=== PATIENT | male | born 1980 | race Caucasian/White ===

== ENCOUNTER 2017-05-06 05:31 | Inpatient (IN) | payer BC, OTHER ==
[2017-05-06] MEDS ORDERED: Sodium Chloride 0.9% 10 ML Syringe FLUSH PRN (05:32)
[2017-05-06] MEDS ORDERED: Sodium Chloride 0.9% 2.5 ML Syringe FLUSH PRN (05:32)
[2017-05-06] MEDS ORDERED: Ondansetron 4 MG/2 ML SDV IVPUSH ONE (05:42)
[2017-05-06] MEDS ORDERED: Aspirin 81 MG Tab.Chew PO ONE ×2 (05:42→05:54)
[2017-05-06] MEDS ORDERED: HYDROmorphone 2 MG/ML Syringe IVPUSH ONE ×2 (05:42→06:32)
--- NOTE | 2017-05-06 05:48 | EDM.PDOC ---
<Ary Alston - Last Filed: 05/06/17 06:54> ED HPI GENERAL MEDICAL PROBLEM - General Chief Complaint: Chest Pain Stated Complaint: CHEST PAINS Time Seen by Provider: 05/06/17 05:40 - History of Present Illness INITIAL COMMENTS - FREE TEXT/NARRATIVE: HISTORY AND PHYSICAL: History of present illness: The patient is a 36-year-old male with no pre-existing medical problems and specifically no cardiac or pulmonary disease who presents with complaints of left-sided chest pain and left abdominal pain that started soon after he woke up at 3 PM yesterday (14hrs ago). 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 The pain gradually evolved and has been constant throughout yesterday afternoon and tonight and has been worse over the last several hours. He says is difficult to take deep breath because of the pain he has had no cough or upper respiratory symptoms no fevers and no recent trauma to the area. He's had no nausea or vomiting and says the pain sits at the left side and does not radiate to his jaw back or arm. He took 2 baby aspirin earlier but no other medications for the pain. He has no history of exercise intolerance and said he did a stress test many years ago was negative. He doesn't smoke or do any illicit drugs and he does not know his cholesterol lipid panel. He says he does drink alcohol occasionally. He has no significant family history. He has no leg pain or swelling and says that with his job he does a lot of sitting but he does get up and around. Patient denies any urinary symptoms and no flank pain. He is very vague about describing as plane only saying that it is very sharp and localized to the left side and worse with movements and deep breath. Review of systems: As per history of present illness and below otherwise all systems reviewed and negative. Past medical history: As per history of present illness and as reviewed below otherwise noncontributory. Surgical history: As per history of present illness and as reviewed below otherwise noncontributory. Social history: No reported history of drug or alcohol abuse. Family history: As per history of present illness and as reviewed below otherwise noncontributory. Physical exam: Gen.: Well-developed well-nourished man who is nontoxic and looks uncomfortable in the room. Vital signs have been noted by me HEENT: Atraumatic, normocephalic, negative for conjunctival pallor or scleral icterus, mucous membranes moist, throat clear, neck supple, nontender, trachea midline. Lungs: Clear to auscultation but very diminished in the bases left greater than right, there is no external evidence of any trauma or soft tissue injuries and there is no crepitus,, there is no wheezing or stridor and is clearly discomfort when the patient takes a deep breath, chest there is tenderness to palpation to the left of the sternum in the lower chest wall area extending towards the left breast without defects deformities or crepitus. The patient splints with any deep breaths and holds his left side. Heart: S1S2, regular, negative for clicks, rubs, or JVD. Abdomen: Soft, nondistended, the patient is very tense which makes abdominal exam challenging but he does have left upper quadrant tenderness with voluntary guarding but no rebound. Bowel sounds are hypoactive but there is no tympany. Negative for masses or hepatosplenomegaly. Negative for costovertebral tenderness. Pelvis: Stable nontender. Genitourinary: Deferred. Rectal: Deferred. Extremities: Atraumatic, negative for cords or calf pain. Neurovascular unremarkable. No pedal edema or leg asymmetry Neuro: Awake, alert, oriented. Cranial nerves II through XII unremarkable. Cerebellum unremarkable. Motor and sensory unremarkable throughout. Exam nonfocal. Diagnostics: EKG one view chest x-ray CBC CMP INR troponin amylase and lipase Therapeutics: IV O2 monitor IV fluids Zofran Dilaudid 2 baby aspirin, patient took 2 baby aspirin earlier 0630: Patient is aware of EKG and chest x-ray and that we are currently waiting the rest of his lab tests and that he can go to CAT scan. After the Dilaudid he does feel better but he still having the discomfort but he has no vital sign abnormalities appreciated both on triage currently. We will give another dose of Dilaudid as he is still having persistent pain 0640: Pt leaving for CT; will repeat an EKG when he returns 0700: Case endorsed to Dr. Rodríguez; he will follow-up EKG#[address] scan results and disposition the patient per those findings. Impression: Left chest/left abdominal pain Definitive disposition and diagnosis as appropriate pending reevaluation and review of above. chest area Pain Score (Numeric/FACES): 10 - Related Data Allergies Allergy/AdvReac Type Severity Reaction Status Date / Time Penicillins Allergy Other Verified 05/06/17 05:43 Home Meds: Home Meds . [No Known Home Meds] 05/06/17 [History] ED ROS GENERAL - Review of Systems Review Of Systems: ROS reveals no pertinent complaints other than HPI. ED EXAM, GENERAL - Physical Exam Exam: See Below (See dictation) Course - Vital Signs Last Recorded V/S: Last Vital Signs Temp 36.1 C 05/06/17 05:39 Pulse 73 05/06/17 07:16 Resp 18 05/06/17 07:16 BP 128/78 05/06/17 07:16 Pulse Ox 97 05/06/17 07:16 - Orders/Labs/Meds Orders: Active Orders 24 hr Category Date Time Status Cardiac Monitoring [RC] . DIRECTED Care 05/06/17 05:32 Active EKG Documentation Completion [RC] STAT Care 05/06/17 05:32 Active EKG Documentation Completion [RC] STAT Care 05/06/17 06:54 Active Oxygen Therapy, ED [RC] ASDIRECTED Care 05/06/17 05:32 Active Pulse Oximetry [RC] ASDIRECTED Care 05/06/17 05:32 Active Abdomen Pelvis w Cont [CT] Stat Exams 05/06/17 05:54 Taken Ang Chest [CT] Stat Exams 05/06/17 05:54 Taken Chest 1V Frontal [CR] Stat Exams 05/06/17 05:41 Taken Azithromycin [Zithromax] 1,000 mg Med 05/06/17 08:08 Ordered Sodium Chloride 0.9% [Normal Saline] 500 ml IV ONETIME Sodium Chloride 0.9% [Normal Saline] 1,000 ml Med 05/06/17 05:45 Active IV ASDIRECTED Sodium Chloride 0.9% [Normal Saline] 1,000 ml Med 05/06/17 08:15 Ordered IV STAT Sodium Chloride 0.9% [Saline Flush] Med 05/06/17 05:32 Active 10 ml FLUSH ASDIRECTED PRN Sodium Chloride 0.9% [Saline Flush] Med 05/06/17 05:32 Active 2.5 ml FLUSH ASDIRECTED PRN cefTRIAXone [Rocephin in Dextrose,Iso-Osm 1 GM/50 ML] 1 Med 05/06/17 08:07 Ordered gm Premix Bag 1 bag IV ONETIME Saline Lock Insert [OM.PC] Stat Oth 05/06/17 05:32 Ordered Medication Orders Sodium Chloride (Normal Saline) 1,000 mls @ 125 mls/hr IV ASDIRECTED RON Last Infusion: 05/06/17 06:32 Dose: 125 mls/hr Infusion: 05/06/17 06:05 Dose: 999 mls/hr Admin: 05/06/17 05:59 Dose: 125 mls/hr Sodium Chloride (Saline Flush) 10 ml FLUSH ASDIRECTED PRN PRN Reason: Keep Vein Open Last Admin: 05/06/17 05:59 Dose: 10 ml Sodium Chloride (Saline Flush) 2.5 ml FLUSH ASDIRECTED PRN PRN Reason: Keep Vein Open Last Admin: 05/06/17 05:59 Dose: 2.5 ml Labs: Laboratory Tests 05/06/17 05/06/17 05/06/17 Range/Units 05:45 05:45 05:45 WBC 14.29 H (4.0-11.0) K/uL RBC 5.13 (4.50-5.90) M/uL Hgb 15.8 (13.0-17.0) g/dL Hct 44.5 (38.0-50.0) % MCV 86.7 (80.0-98.0) fL MCH 30.8 (27.0-32.0) pg MCHC 35.5 (31.0-37.0) g/dL RDW Std Deviation 40.1 (28.0-62.0) fl RDW Coeff of Emily 13 (11.0-15.0) % Plt Count 327 (150-400) K/uL MPV 10.00 (7.40-12.00) fL Neut % (Auto) 70.2 (48.0-80.0) % Lymph % (Auto) 21.0 (16.0-40.0) % [place] % (Auto) 7.6 (0.0-15.0) % Eos % (Auto) 1.0 (0.0-7.0) % Baso % (Auto) 0.2 (0.0-1.5) % Neut # (Auto) 10.0 H (1.4-5.7) K/uL Lymph # (Auto) 3.0 H (0.6-2.4) K/uL [place] # (Auto) 1.1 H (0.0-0.8) K/uL Eos # (Auto) 0.2 (0.0-0.7) K/uL Baso # (Auto) 0.0 (0.0-0.1) K/uL Nucleated RBC % 0.0 /100WBC Nucleated RBCs # 0 K/uL INR 0.96 (0.86-1.11) Sodium 139 (136-146) mmol/L Potassium 4.3 (3.5-5.1) mmol/L Chloride 105 (98-110) mmol/L Carbon Dioxide 24 (21-31) mmol/L BUN 17 (6.0-23.0) mg/dL Creatinine 1.0 (0.6-1.5) mg/dL Est Cr Clr Drug Dosing 93.93 mL/min Estimated GFR (MDRD) > 60.0 ml/min Glucose 101 (60-110) mg/dL Calcium 10.0 (8.8-10.8) mg/dL Total Bilirubin 0.8 (0.1-1.5) mg/dL AST 18 (5-40) IU/L ALT 20 (8-54) IU/L Alkaline Phosphatase 69 (40-150) Troponin I < 0.10 (0.0-0.29) NG/ML Total Protein 8.0 (6.0-8.0) g/dL Albumin 4.4 (3.5-5.0) g/dL Globulin 3.6 H (2.0-3.5) g/dL Albumin/Globulin Ratio 1.2 L (1.3-2.8) Amylase 81 (10-90) U/L Lipase 49 (7-80) U/L Meds: Medications Generic Name Dose Route Start Last Admin Trade Name Freq PRN Reason Stop Dose Admin Sodium Chloride 1,000 mls @ 125 mls/hr 05/06/17 05:45 05/06/17 06:32 Normal Saline IV 125 mls/hr ASDIRECTED RON Infusion Sodium Chloride 10 ml 05/06/17 05:32 05/06/17 05:59 Saline Flush FLUSH 10 ml ASDIRECTED PRN Administration Keep Vein Open Sodium Chloride 2.5 ml 05/06/17 05:32 05/06/17 05:59 Saline Flush FLUSH 2.5 ml ASDIRECTED PRN Administration Keep Vein Open Discontinued Medications Generic Name Dose Route Start Last Admin Trade Name Freq PRN Reason Stop Dose Admin Aspirin 324 mg 05/06/17 05:42 05/06/17 05:59 Aspirin PO 05/06/17 05:43 Not Given ONETIME ONE Aspirin 162 mg 05/06/17 09:00 Aspirin PO DAILY RON Aspirin 162 mg 05/06/17 06:00 Aspirin PO DAILY RON Aspirin 162 mg 05/06/17 05:54 05/06/17 05:57 Aspirin PO 05/06/17 05:55 162 mg ONETIME ONE Administration Hydromorphone HCl 1 mg 05/06/17 05:42 05/06/17 05:57 Dilaudid IVPUSH 05/06/17 05:43 1 mg ONETIME ONE Administration Hydromorphone HCl 1 mg 05/06/17 06:32 05/06/17 06:36 Dilaudid IVPUSH 05/06/17 06:33 1 mg ONETIME ONE Administration Iopamidol 100 ml 05/06/17 07:19 05/06/17 07:20 Isovue Multipack-370 (76%) IVPUSH 05/06/17 07:20 100 ml ONETIME STA Administration Ondansetron HCl 4 mg 05/06/17 05:42 05/06/17 05:57 Zofran IVPUSH 05/06/17 05:43 4 mg ONETIME ONE Administration Departure - Departure Disposition: Admitted As Inpatient 68 Condition: Good Clinical Impression: Consolidation lung Chest pain Qualifiers: Chest pain type: unspecified Qualified Code(s): R07.9 - Chest pain, unspecified Abdominal pain Qualifiers: Abdominal location: left upper quadrant Qualified Code(s): R10.12 - Left upper quadrant pain - Discharge Information Forms: ED Department Discharge - My Orders Last 24 Hours: My Active Orders 05/06/17 08:07 cefTRIAXone [Rocephin in Dextrose,Iso-Osm 1 GM/50 ML] 1 gm Premix Bag 1 bag IV ONETIME 05/06/17 08:08 Azithromycin [Zithromax] 1,000 mg Sodium Chloride 0.9% [Normal Saline] 500 ml IV ONETIME 05/06/17 08:15 Sodium Chloride 0.9% [Normal Saline] 1,000 ml IV STAT - Assessment/Plan Last 24 Hours: My Active Orders 05/06/17 08:07 cefTRIAXone [Rocephin in Dextrose,Iso-Osm 1 GM/50 ML] 1 gm Premix Bag 1 bag IV ONETIME 05/06/17 08:08 Azithromycin [Zithromax] 1,000 mg Sodium Chloride 0.9% [Normal Saline] 500 ml IV ONETIME 05/06/17 08:15 Sodium Chloride 0.9% [Normal Saline] 1,000 ml IV STAT <Duncan Rodríguez - Last Filed: 05/06/17 08:10> ED HPI GENERAL MEDICAL PROBLEM - History of Present Illness INITIAL COMMENTS - FREE TEXT/NARRATIVE: I've seen in examined the patient agree with above His endorsed to me at follow-up imaging CTA and abdomen pelvis with contrast Pain is still present 4 out of 10 but tolerable Findings on CT are as follows Assessment Lower lobe consolidation with small effusion Small hiatal hernia Pain Plan Discussed with Dr. Walker admitting physician will admitted inpatient start on Rocephin and azithromycin and pain control Departure - Departure Time of Disposition: 08:10 Condition: Fair
[2017-05-06] MEDS: Sodium Chloride 0.9% 1,000 ML IV SCH (05:59)
[2017-05-06] MEDS ORDERED: Aspirin 81 MG Tab.Chew PO SCH ×2 (06:00→09:00)
[2017-05-06 06:33] LABS: CHLORIDE,CL 105 mmol/L (98-110); SODIUM,NA 139 mmol/L (136-146)
[2017-05-06] MEDS ORDERED: Iopamidol 755 MG/ML 500 ML Multipack Bottle IVPUSH STA (07:19)
[2017-05-06] MEDS ORDERED: cefTRIAXone 1 GM in Premix Bag 1 BAG IV ONE (08:07)
[2017-05-06] MEDS ORDERED: Azithromycin 1,000 MG in Sodium Chloride 0.9% 500 ML IV ONE (08:08)
[2017-05-06] MEDS ORDERED: Sodium Chloride 0.9% 1,000 ML IV SCH (08:15)
[2017-05-06] MEDS ORDERED: Acetaminophen 325 MG Tab PO PRN (10:01)
[2017-05-06] MEDS ORDERED: Morphine 2 MG/ML Syringe IVPUSH PRN (10:01)
[2017-05-06] MEDS ORDERED: Ibuprofen 400 MG Tab PO PRN (10:01)
--- NOTE | 2017-05-06 10:08 | PCM.HP ---
H&P History of Present Illness - History of Present Illness Initial Comments - Free Text/Narative: 36 yo male who presents with two day history of pleuritic chest pain and fever and chills. He denies any shortness of breath, or cough. In the ED patient's EKG did not show any signs of ischemia. CT PE scan was negative for PE, it did report mild basilar consolidation. chest area Pain Score (Numeric/FACES): 6 - Related Data Allergies/Adverse Reactions: Allergies Allergy/AdvReac Type Severity Reaction Status Date / Time Penicillins Allergy Other Verified 05/06/17 05:43 Home Medications: Home Meds . [No Known Home Meds] 05/06/17 [History] Past Medical History - Past Health History Medical/Surgical History: Denies Medical/Surgical History HEENT History: Reports: None Cardiovascular History: Reports: None Respiratory History: Reports: None Gastrointestinal History: Reports: None Genitourinary History: Reports: None Musculoskeletal History: Reports: None Neurological History: Reports: None Psychiatric History: Reports: None Endocrine/Metabolic History: Reports: None Hematologic History: Reports: None Immunologic History: Reports: None Oncologic (Cancer) History: Reports: None Dermatologic History: Reports: None - Infectious Disease History Infectious Disease History: Reports: Chicken Pox - Past Surgical History Head Surgeries/Procedures: Reports: None HEENT Surgical History: Reports: None Social & Family History - Family History Family Medical History: Noncontributory - Tobacco Use Smoking Status *Q: Never Smoker Second Hand Smoke Exposure: No - Caffeine Use Caffeine Use: Reports: Coffee, Energy Drinks, Soda, Tea - Recreational Drug Use Recreational Drug Use: No H&P Review of Systems - Review of Systems: Review Of Systems: ROS reveals no pertinent complaints other than HPI. Exam - Exam Exam: See Below - Vital Signs Vital Signs: Last Vital Signs Temp 35.6 C 05/06/17 08:45 Pulse 69 05/06/17 08:45 Resp 20 05/06/17 08:45 BP 124/81 05/06/17 08:45 Pulse Ox 98 05/06/17 09:20 Weight: 75.8 kg - Exam General: Alert Lungs: Clear to Auscultation, Normal Respiratory Effort. No: Decreased Breath Sounds, Crackles, Rhonchi, Wheezing Cardiovascular: Regular Rate, Regular Rhythm GI/Abdominal Exam: Soft, Non-Tender, No Distention Extremities: Non-Tender, No Pedal Edema Skin: Warm, Intact - Patient Data Result Diagrams: 05/07/17 05:44 05/07/17 05:44 *Q Meaningful Use (ADM) - VTE *Q VTE Criteria *Q: - Stroke *Q Stroke Criteria *Q: - AMI *Q AMI Criteria *Q: Problem List Initiated/Reviewed/Updated: Yes Orders Last 24hrs: Active Orders 24 hr Category Date Time Status Antiembolic Devices [RC] PER UNIT ROUTINE Care 05/06/17 10:04 Ordered Oxygen Therapy [RC] PRN Care 05/06/17 10:02 Ordered Up With Assistance [RC] ASDIRECTED Care 05/06/17 10:01 Ordered VTE/DVT Education [RC] PER UNIT ROUTINE Care 05/06/17 10:02 Ordered Vital Signs [RC] Q4H Care 05/06/17 10:02 Ordered Regular Diet [DIET] Diet 05/06/17 Breakfast Ordered BASIC METABOLIC PANEL,BMP [CHEM] AM Lab 05/07/17 05:11 Ordered BASIC METABOLIC PANEL,BMP [CHEM] AM Lab 05/08/17 05:11 Ordered BASIC METABOLIC PANEL,BMP [CHEM] AM Lab 05/09/17 05:11 Ordered CBC WITH AUTO DIFF [HEME] AM Lab 05/07/17 05:11 Ordered CBC WITH AUTO DIFF [HEME] AM Lab 05/08/17 05:11 Ordered CBC WITH AUTO DIFF [HEME] AM Lab 05/09/17 05:11 Ordered TROPONIN I [CHEM] Q6H Lab 05/06/17 12:00 Ordered TROPONIN I [CHEM] Q6H Lab 05/06/17 18:00 Ordered Acetaminophen [Tylenol] Med 05/06/17 10:01 Ordered 650 mg PO Q4H PRN Azithromycin [Zithromax] 500 mg Med 05/07/17 10:00 Active Sodium Chloride 0.9% [Normal Saline] 250 ml IV Q24H Enoxaparin [Lovenox] Med 05/07/17 09:00 Ordered 40 mg SUBCUT DAILY Ibuprofen [Motrin] Med 05/06/17 10:01 Ordered 400 mg PO Q6H PRN Morphine Med 05/06/17 10:01 Ordered 2 mg IVPUSH Q4H PRN Ondansetron [Zofran] Med 05/06/17 10:01 Ordered 4 mg IVPUSH Q4H PRN cefTRIAXone [Rocephin in Dextrose,Iso-Osm 1 GM/50 ML] 1 Med 05/07/17 10:00 Active gm Premix Bag 1 bag IV Q24H oxyCODONE Med 05/06/17 10:01 Ordered 5 mg PO Q4H PRN Sequential Compression Device [OM.PC] Per Unit Routine Oth 05/06/17 10:02 Ordered Resuscitation Status Routine Resus Stat 05/06/17 10:01 Ordered Medication Orders Sodium Chloride (Normal Saline) 1,000 mls @ 125 mls/hr IV ASDIRECTED RON Last Infusion: 05/06/17 06:32 Dose: 125 mls/hr Infusion: 05/06/17 06:05 Dose: 999 mls/hr Admin: 05/06/17 05:59 Dose: 125 mls/hr Azithromycin 1,000 mg/ Sodium (Chloride) 500 mls @ 250 mls/hr IV ONETIME ONE Stop: 05/06/17 10:07 Sodium Chloride (Normal Saline) 1,000 mls @ 125 mls/hr IV STAT RON Azithromycin 500 mg/ Sodium (Chloride) 250 mls @ 250 mls/hr IV Q24H ORN Ceftriaxone Sodium/Dextrose 1 (gm/ Premix) 50 mls @ 100 mls/hr IV Q24H RON Sodium Chloride (Saline Flush) 10 ml FLUSH ASDIRECTED PRN PRN Reason: Keep Vein Open Last Admin: 05/06/17 05:59 Dose: 10 ml Sodium Chloride (Saline Flush) 2.5 ml FLUSH ASDIRECTED PRN PRN Reason: Keep Vein Open Last Admin: 05/06/17 05:59 Dose: 2.5 ml Assessment/Plan Comment:: 36 yo male admitted for community acquired pneumonia. We will treat with Rocephin and azithromycin.
[2017-05-06] MEDS: oxyCODONE 5 MG Tab PO PRN ×3 (10:25→23:01)
[2017-05-06] MEDS: Ondansetron 4 MG/2 ML SDV IVPUSH PRN (10:27)
[2017-05-06] MEDS: Azithromycin 500 MG in Sodium Chloride 0.9% 250 ML IV SCH (11:07)
[2017-05-07] MEDS: Sodium Chloride 0.9% 1,000 ML IV SCH (03:17)
[2017-05-07] MEDS: oxyCODONE 5 MG Tab PO PRN (05:50)
[2017-05-07] MEDS ORDERED: Calcium Carbonate 500 MG Tab.Chew PO PRN (06:19)
[2017-05-07 06:26] LABS: CHLORIDE,CL 109 mmol/L (98-110); SODIUM,NA 140 mmol/L (136-146)
[2017-05-07] MEDS ORDERED: Enoxaparin 40 MG/0.4 ML Syringe SUBCUT SCH (09:00)
--- NOTE | 2017-05-07 09:46 | PCM.PN ---
- Review of Systems Systems Review Comment:: chest pain has improved, no fevers or cough. - Patient Data Vitals - Most Recent: Last Vital Signs Temp 35.9 C 05/07/17 08:00 Pulse 86 05/07/17 08:00 Resp 22 H 05/07/17 08:00 BP 124/70 05/07/17 08:00 Pulse Ox 92 L 05/07/17 08:00 Weight - Most Recent: 75.8 kg I&O - Last 24 Hours: Intake & Output 05/06/17 05/07/17 05/07/17 22:59 06:59 14:59 Intake Total 200 3404 Output Total 770 300 Balance -570 3104 Lab Results Last 24 Hours: Laboratory Results - last 24 hr 05/06/17 05/06/17 05/07/17 Range/Units 12:09 18:05 05:44 WBC 11.00 (4.0-11.0) K/uL RBC 4.57 (4.50-5.90) M/uL Hgb 14.0 (13.0-17.0) g/dL Hct 40.6 (38.0-50.0) % MCV 88.8 (80.0-98.0) fL MCH 30.6 (27.0-32.0) pg MCHC 34.5 (31.0-37.0) g/dL RDW Std Deviation 40.9 (28.0-62.0) fl RDW Coeff of Emily 13 (11.0-15.0) % Plt Count 276 (150-400) K/uL MPV 9.80 (7.40-12.00) fL Neut % (Auto) 75.8 (48.0-80.0) % Lymph % (Auto) 16.3 (16.0-40.0) % [place] % (Auto) 7.2 (0.0-15.0) % Eos % (Auto) 0.5 (0.0-7.0) % Baso % (Auto) 0.2 (0.0-1.5) % Neut # (Auto) 8.3 H (1.4-5.7) K/uL Lymph # (Auto) 1.8 (0.6-2.4) K/uL [place] # (Auto) 0.8 (0.0-0.8) K/uL Eos # (Auto) 0.1 (0.0-0.7) K/uL Baso # (Auto) 0.0 (0.0-0.1) K/uL Nucleated RBC % 0.0 /100WBC Nucleated RBCs # 0 K/uL Sodium (136-146) mmol/L Potassium (3.5-5.1) mmol/L Chloride (98-110) mmol/L Carbon Dioxide (21-31) mmol/L BUN (6.0-23.0) mg/dL Creatinine (0.6-1.5) mg/dL Est Cr Clr Drug Dosing mL/min Estimated GFR (MDRD) ml/min Glucose (60-110) mg/dL Calcium (8.8-10.8) mg/dL Troponin I < 0.10 < 0.10 (0.0-0.29) NG/ML 05/07/17 Range/Units 05:44 WBC (4.0-11.0) K/uL RBC (4.50-5.90) M/uL Hgb (13.0-17.0) g/dL Hct (38.0-50.0) % MCV (80.0-98.0) fL MCH (27.0-32.0) pg MCHC (31.0-37.0) g/dL RDW Std Deviation (28.0-62.0) fl RDW Coeff of Emily (11.0-15.0) % Plt Count (150-400) K/uL MPV (7.40-12.00) fL Neut % (Auto) (48.0-80.0) % Lymph % (Auto) (16.0-40.0) % [place] % (Auto) (0.0-15.0) % Eos % (Auto) (0.0-7.0) % Baso % (Auto) (0.0-1.5) % Neut # (Auto) (1.4-5.7) K/uL Lymph # (Auto) (0.6-2.4) K/uL [place] # (Auto) (0.0-0.8) K/uL Eos # (Auto) (0.0-0.7) K/uL Baso # (Auto) (0.0-0.1) K/uL Nucleated RBC % /100WBC Nucleated RBCs # K/uL Sodium 140 (136-146) mmol/L Potassium 4.2 (3.5-5.1) mmol/L Chloride 109 (98-110) mmol/L Carbon Dioxide 25 (21-31) mmol/L BUN 10 (6.0-23.0) mg/dL Creatinine 0.8 (0.6-1.5) mg/dL Est Cr Clr Drug Dosing 121.64 mL/min Estimated GFR (MDRD) > 60.0 ml/min Glucose 110 (60-110) mg/dL Calcium 8.8 (8.8-10.8) mg/dL Troponin I (0.0-0.29) NG/ML Med Orders - Current: Current Medications Acetaminophen (Tylenol) 650 mg PO Q4H PRN PRN Reason: Pain (Mild 1-3)/fever Calcium Carbonate/Glycine (Tums) 500 mg PO TID PRN PRN Reason: Heartburn Enoxaparin Sodium (Lovenox) 40 mg SUBCUT DAILY [facility] [place] Last Admin: 05/07/17 09:33 Dose: 40 mg Sodium Chloride (Normal Saline) 1,000 mls @ 125 mls/hr IV ASDIRECTED [facility] [place] Last Admin: 05/07/17 03:17 Dose: 125 mls/hr Ceftriaxone Sodium/Dextrose 1 (gm/ Premix) 50 mls @ 100 mls/hr IV Q24H [facility] [place] Last Admin: 05/07/17 09:34 Dose: 100 mls/hr Azithromycin 500 mg/ Sodium (Chloride) 250 mls @ 250 mls/hr IV Q24H [facility] [place] Last Admin: 05/06/17 11:07 Dose: 250 mls/hr Ibuprofen (Motrin) 400 mg PO Q6H PRN PRN Reason: Pain (mild 1-3) Ondansetron HCl (Zofran) 4 mg IVPUSH Q4H PRN PRN Reason: Nausea Last Admin: 05/06/17 10:27 Dose: 4 mg Sodium Chloride (Saline Flush) 10 ml FLUSH ASDIRECTED PRN PRN Reason: Keep Vein Open Last Admin: 05/06/17 05:59 Dose: 10 ml Sodium Chloride (Saline Flush) 2.5 ml FLUSH ASDIRECTED PRN PRN Reason: Keep Vein Open Last Admin: 05/06/17 05:59 Dose: 2.5 ml Discontinued Medications Aspirin (Aspirin) 324 mg PO ONETIME ONE Stop: 05/06/17 05:43 Last Admin: 05/06/17 05:59 Dose: Not Given Aspirin (Aspirin) 162 mg PO DAILY [facility] [place] Aspirin (Aspirin) 162 mg PO DAILY [facility] [place] Aspirin (Aspirin) 162 mg PO ONETIME ONE Stop: 05/06/17 05:55 Last Admin: 05/06/17 05:57 Dose: 162 mg Hydromorphone HCl (Dilaudid) 1 mg IVPUSH ONETIME ONE Stop: 05/06/17 05:43 Last Admin: 05/06/17 05:57 Dose: 1 mg Hydromorphone HCl (Dilaudid) 1 mg IVPUSH ONETIME ONE Stop: 05/06/17 06:33 Last Admin: 05/06/17 06:36 Dose: 1 mg Azithromycin 1,000 mg/ Sodium (Chloride) 500 mls @ 250 mls/hr IV ONETIME ONE Stop: 05/06/17 10:07 Last Admin: 05/06/17 10:11 Dose: Not Given Ceftriaxone Sodium/Dextrose 1 (gm/ Premix) 50 mls @ 100 mls/hr IV ONETIME ONE Stop: 05/06/17 08:36 Last Admin: 05/06/17 08:23 Dose: 100 mls/hr Sodium Chloride (Normal Saline) 1,000 mls @ 125 mls/hr IV STAT RNO Last Admin: 05/06/17 10:33 Dose: 125 mls/hr Azithromycin 500 mg/ Sodium (Chloride) 250 mls @ 250 mls/hr IV Q24H [facility] [place] Iopamidol (Isovue Multipack-370 (76%)) 100 ml IVPUSH ONETIME STA Stop: 05/06/17 07:20 Last Admin: 05/06/17 07:20 Dose: 100 ml Morphine Sulfate (Morphine) 2 mg IVPUSH Q4H PRN PRN Reason: Pain (severe 7-10) Stop: 05/07/17 10:03 Ondansetron HCl (Zofran) 4 mg IVPUSH ONETIME ONE Stop: 05/06/17 05:43 Last Admin: 05/06/17 05:57 Dose: 4 mg Oxycodone HCl (Oxycodone) 5 mg PO Q4H PRN PRN Reason: Pain (moderate 4-6) Last Admin: 05/07/17 05:50 Dose: 5 mg - Exam General: Alert, Oriented Lungs: Clear to Auscultation, Normal Respiratory Effort. No: Rhonchi, Wheezing Cardiovascular: Regular Rate, Regular Rhythm GI/Abdominal Exam: Soft, Non-Tender Extremities: Normal Inspection Skin: Warm, Dry, Intact Neurological: No New Focal Deficit - Problem List Review Problem List Initiated/Reviewed/Updated: Yes - My Orders Last 24 Hours: My Active Orders 05/06/17 10:01 Up With Assistance [RC] ASDIRECTED Acetaminophen [Tylenol] 650 mg PO Q4H PRN Ibuprofen [Motrin] 400 mg PO Q6H PRN Ondansetron [Zofran] 4 mg IVPUSH Q4H PRN oxyCODONE 5 mg PO Q4H PRN Resuscitation Status Routine 05/06/17 10:02 VTE/DVT Education [RC] PER UNIT ROUTINE Vital Signs [RC] Q4H Sequential Compression Device [OM.PC] Per Unit Routine 05/06/17 10:04 Antiembolic Devices [RC] PER UNIT ROUTINE 05/06/17 10:08 CULTURE SPUTUM + SMEAR [RM] Routine 05/06/17 11:00 Azithromycin [Zithromax] 500 mg Sodium Chloride 0.9% [Normal Saline] 250 ml IV Q24H 05/07/17 06:19 Calcium Carbonate [Tums] 500 mg PO TID PRN 05/07/17 09:00 Enoxaparin [Lovenox] 40 mg SUBCUT DAILY 05/07/17 10:00 cefTRIAXone [Rocephin in Dextrose,Iso-Osm 1 GM/50 ML] 1 gm Premix Bag 1 bag IV Q24H 05/08/17 05:11 BASIC METABOLIC PANEL,BMP [CHEM] AM CBC WITH AUTO DIFF [HEME] AM 05/09/17 05:11 BASIC METABOLIC PANEL,BMP [CHEM] AM CBC WITH AUTO DIFF [HEME] AM - Plan Plan:: 36 yo male admitted for community acquired pneumonia. We will continue Rocephin and azithromycin. Anticipate discharge home tomorrow.
[2017-05-07] MEDS ORDERED: cefTRIAXone 1 GM in Premix Bag 1 BAG IV SCH (10:00)
[2017-05-07] MEDS ORDERED: Azithromycin 500 MG in Sodium Chloride 0.9% 250 ML IV SCH (10:00)
[2017-05-07] MEDS: Azithromycin 500 MG in Sodium Chloride 0.9% 250 ML IV SCH (10:55)
[2017-05-07] MEDS: Ondansetron 4 MG/2 ML SDV IVPUSH PRN (12:12)
--- NOTE | 2017-05-07 18:43 | PCM.DCSUM1 ---
Discharge Summary - Discharge Data Discharge Date: 05/07/17 Discharge Disposition: Home, Self-Care 01 Condition: Good - Patient Summary/Data Hospital Course: 36 yo male who was admitted last night for community acquired pneumonia. He presented with two day history of pleuritic chest pain and fever and chills. He denied any shortness of breath, or cough. In the ED patient's EKG did not show any signs of ischemia. Sereial troponins were negative. He did have a leukocytosis of 14,270. CT PE scan was negative for PE, but did report mild basilar consolidation. He was treated with Azithromycin and Rocephin. His leukocytosis resolved this morning. This evening patient is requesting discharge. He was discharged home with Azithromycin 500 mg daily for five more days. - Patient Instructions Diet: Regular Diet as Tolerated Activity: As Tolerated Notify Provider of: Fever - Discharge Plan Prescriptions/Med Rec: Azithromycin 500 mg PO DAILY #5 tablet Home Medications: Home Meds Azithromycin 500 mg PO DAILY #5 tablet 05/07/17 [Rx] Forms: ED Department Discharge - Patient Data Vitals - Most Recent: Last Vital Signs Temp 37.0 C 05/07/17 16:00 Pulse 86 05/07/17 16:00 Resp 22 H 05/07/17 16:00 BP 100/53 L 05/07/17 16:00 Pulse Ox 90 L 05/07/17 16:00 Weight - Most Recent: 75.8 kg I&O - Last 24 hours: Intake & Output 05/07/17 05/07/17 05/07/17 06:59 14:59 22:59 Intake Total 3404 987 940 Output Total 300 900 Balance 3104 987 40 Lab Results - Last 24 hrs: Laboratory Results - last 24 hr 05/07/17 05/07/17 Range/Units 05:44 05:44 WBC 11.00 (4.0-11.0) K/uL RBC 4.57 (4.50-5.90) M/uL Hgb 14.0 (13.0-17.0) g/dL Hct 40.6 (38.0-50.0) % MCV 88.8 (80.0-98.0) fL MCH 30.6 (27.0-32.0) pg MCHC 34.5 (31.0-37.0) g/dL RDW Std Deviation 40.9 (28.0-62.0) fl RDW Coeff of Emily 13 (11.0-15.0) % Plt Count 276 (150-400) K/uL MPV 9.80 (7.40-12.00) fL Neut % (Auto) 75.8 (48.0-80.0) % Lymph % (Auto) 16.3 (16.0-40.0) % [place] % (Auto) 7.2 (0.0-15.0) % Eos % (Auto) 0.5 (0.0-7.0) % Baso % (Auto) 0.2 (0.0-1.5) % Neut # (Auto) 8.3 H (1.4-5.7) K/uL Lymph # (Auto) 1.8 (0.6-2.4) K/uL [place] # (Auto) 0.8 (0.0-0.8) K/uL Eos # (Auto) 0.1 (0.0-0.7) K/uL Baso # (Auto) 0.0 (0.0-0.1) K/uL Nucleated RBC % 0.0 /100WBC Nucleated RBCs # 0 K/uL Sodium 140 (136-146) mmol/L Potassium 4.2 (3.5-5.1) mmol/L Chloride 109 (98-110) mmol/L Carbon Dioxide 25 (21-31) mmol/L BUN 10 (6.0-23.0) mg/dL Creatinine 0.8 (0.6-1.5) mg/dL Est Cr Clr Drug Dosing 121.64 mL/min Estimated GFR (MDRD) > 60.0 ml/min Glucose 110 (60-110) mg/dL Calcium 8.8 (8.8-10.8) mg/dL Med Orders - Current: Current Medications Acetaminophen (Tylenol) 650 mg PO Q4H PRN PRN Reason: Pain (Mild 1-3)/fever Calcium Carbonate/Glycine (Tums) 500 mg PO TID PRN PRN Reason: Heartburn Enoxaparin Sodium (Lovenox) 40 mg SUBCUT DAILY [facility] Last Admin: 05/07/17 09:33 Dose: 40 mg Ceftriaxone Sodium/Dextrose 1 (gm/ Premix) 50 mls @ 100 mls/hr IV Q24H [facility] Last Admin: 05/07/17 09:34 Dose: 100 mls/hr Azithromycin 500 mg/ Sodium (Chloride) 250 mls @ 250 mls/hr IV Q24H [facility] Last Admin: 05/07/17 10:55 Dose: 250 mls/hr Ibuprofen (Motrin) 400 mg PO Q6H PRN PRN Reason: Pain (mild 1-3) Ondansetron HCl (Zofran) 4 mg IVPUSH Q4H PRN PRN Reason: Nausea Last Admin: 05/07/17 12:12 Dose: 4 mg Sodium Chloride (Saline Flush) 10 ml FLUSH ASDIRECTED PRN PRN Reason: Keep Vein Open Last Admin: 05/06/17 05:59 Dose: 10 ml Sodium Chloride (Saline Flush) 2.5 ml FLUSH ASDIRECTED PRN PRN Reason: Keep Vein Open Last Admin: 05/06/17 05:59 Dose: 2.5 ml Discontinued Medications Aspirin (Aspirin) 324 mg PO ONETIME ONE Stop: 05/06/17 05:43 Last Admin: 05/06/17 05:59 Dose: Not Given Aspirin (Aspirin) 162 mg PO DAILY [facility] Aspirin (Aspirin) 162 mg PO DAILY [facility] Aspirin (Aspirin) 162 mg PO ONETIME ONE Stop: 05/06/17 05:55 Last Admin: 05/06/17 05:57 Dose: 162 mg Hydromorphone HCl (Dilaudid) 1 mg IVPUSH ONETIME ONE Stop: 05/06/17 05:43 Last Admin: 05/06/17 05:57 Dose: 1 mg Hydromorphone HCl (Dilaudid) 1 mg IVPUSH ONETIME ONE Stop: 05/06/17 06:33 Last Admin: 05/06/17 06:36 Dose: 1 mg Sodium Chloride (Normal Saline) 1,000 mls @ 125 mls/hr IV ASDIRECTED [facility] Last Admin: 05/07/17 03:17 Dose: 125 mls/hr Azithromycin 1,000 mg/ Sodium (Chloride) 500 mls @ 250 mls/hr IV ONETIME ONE Stop: 05/06/17 10:07 Last Admin: 05/06/17 10:11 Dose: Not Given Ceftriaxone Sodium/Dextrose 1 (gm/ Premix) 50 mls @ 100 mls/hr IV ONETIME ONE Stop: 05/06/17 08:36 Last Admin: 05/06/17 08:23 Dose: 100 mls/hr Sodium Chloride (Normal Saline) 1,000 mls @ 125 mls/hr IV STAT RON Last Admin: 05/06/17 10:33 Dose: 125 mls/hr Azithromycin 500 mg/ Sodium (Chloride) 250 mls @ 250 mls/hr IV Q24H RON Iopamidol (Isovue Multipack-370 (76%)) 100 ml IVPUSH ONETIME STA Stop: 05/06/17 07:20 Last Admin: 05/06/17 07:20 Dose: 100 ml Morphine Sulfate (Morphine) 2 mg IVPUSH Q4H PRN PRN Reason: Pain (severe 7-10) Stop: 05/07/17 10:03 Ondansetron HCl (Zofran) 4 mg IVPUSH ONETIME ONE Stop: 05/06/17 05:43 Last Admin: 05/06/17 05:57 Dose: 4 mg Oxycodone HCl (Oxycodone) 5 mg PO Q4H PRN PRN Reason: Pain (moderate 4-6) Last Admin: 05/07/17 05:50 Dose: 5 mg *Q Meaningful Use (DIS) - VTE *Q VTE Criteria *Q: - Stroke *Q Stroke Criteria *Q: - AMI *Q AMI Criteria *Q:
--- NOTE | 2017-05-08 11:16 | CR ---
EXAM DATE: 05/06/17 PATIENT'S AGE: 36 Patient: KIERSTEN RIOS Facility: [place], [place] Site . Site : 1980 Study: XRay Chest [id number]/18/2017 5:54:12 AM Ordering Physician: Doctor Kramer Final Report: INDICATION: Shortness of breath TECHNIQUE: Chest radiograph 1 view COMPARISON: None FINDINGS: Cardiovascular and mediastinum: The heart silhouette is normal in size and morphology. The mediastinum is normal in appearance. Lungs and pleural spaces: Both lungs are unremarkable in appearance. No sign of pleural effusion seen. No pneumothorax is identified. Bones and soft tissues: No significant findings. IMPRESSION: 1. No acute cardiopulmonary disease is seen. Dictated by Dante Argueta MD @ 05/06/2017 6:11:42 AM Dictated by: Dante Argueta MD @ 05/06/2017 06:11:48 (Electronic Signature) Report Signed by Proxy. [facility] CAMPUSAlycia
--- NOTE | 2017-05-08 11:17 | CT ---
EXAM DATE: 05/06/17 PATIENT'S AGE: 36 Patient: KIERSTEN RIOS Facility: [place], [place] Site . Site : 1980 Study: CT Chest Angio [id number]/2017 7:18:44 AM Ordering Physician: Alecia Mcallister Final Report: HISTORY: Chest pain well PE technique contrast-enhanced CT PE with a 100 mL Isovue-370. Coronal sagittal reformatted images obtained. Comparison: No comparison studies are available. Adequate opacification of the pulmonary arteries. No filling defects seen. Normal caliber thoracic aorta without aneurysm. Heart size normal. Small bilateral pleural effusions. Small amount of anterior soft tissue soft tissues probably reflect residual thymic tissue. Small mildly prominent right hilar and prevascular nodes subcentimeter in size. Central airways are clear. Basilar dependent patchy atelectasis/consolidation. Impression: 1. No findings for pulmonary emboli. Normal thoracic aorta without aneurysm or dissection. 2. Bilateral tiny pleural effusions with basilar atelectasis and mild consolidation. Please note that all CT scans at this facility use dose modulation, iterative reconstruction, and/or weight-based dosing when appropriate to reduce radiation dose to as low as reasonably achievable. Dictated by Katalina Carlisle MD @ May 06 2017 7:37AM (Electronic Signature) Report Signed by Proxy. [facility]TDD
--- NOTE | 2017-05-08 11:18 | CT ---
EXAM DATE: 05/06/17 PATIENT'S AGE: 36 Patient: KIERSTEN RIOS Facility: [place], [place] Site . Site : 1980 Study: CT Abdomen/Pelvis [id number]/18/2017 7:21:24 AM Ordering Physician: Alecia Mcallister Final Report: HISTORY: Left upper quadrant pain. Technique: Contrast-enhanced CT abdomen pelvis with 100 mL Isovue-370. Coronal sagittal reformat images obtained. Comparison: No comparison studies are available. Heart size normal. Tiny bilateral pleural effusions. Basilar patchy atelectasis and consolidation. Small hiatal hernia. The spleen is not enlarged. Liver pancreas gallbladder, adrenal glands are unremarkable. Kidneys enhance symmetrically. No hydronephrosis or nephrolithiasis. Normal appendix. Urinary bladder is appears unremarkable. Right fat containing inguinal hernia. Prostate gland mildly prominent measuring 4.5 cm. The bowel is unremarkable. No obstruction. Small fat containing umbilical hernia no incarceration. Osseous structures are unremarkable . Impression: 1. No acute findings the abdomen or pelvis. 2. Small hiatal hernia. 3. Mildly prominent prostate gland. Please note that all CT scans at this facility use dose modulation, iterative reconstruction, and/or weight-based dosing when appropriate to reduce radiation dose to as low as reasonably achievable. Dictated by Katalina Carlisle MD @ May 06 2017 7:46AM (Electronic Signature) Report Signed by Proxy. [facility]
== END 2017-05-07 19:00 | disposition home or self-care (01) | DRG 194 ==
LOC: MW.ED 05:31 → MW.MS 08:54
PROVIDERS: ADMIT Internal Medicine; ATTEND Internal Medicine
DX: J18.9 Pneumonia, unspecified organism (principal); J90 Pleural effusion, not elsewhere classified; R07.9 Chest pain, unspecified; R10.12 Left upper quadrant pain; K44.9 Diaphragmatic hernia without obstruction or gangrene; D72.829 Elevated white blood cell count, unspecified; Z88.0 Allergy status to penicillin
CPT/HCPCS: 36415; 71010; 71010-26; 71275; 71275-26; 74177; 74177-26; 80048; 80053; 82150; 83690; 84484; 85025; 85610; 93005; 96361; 96374; 96375; 99283; 99285-25; A9270-GY; J0456; J0696; J1170; J1650; J2405; J7040; J7050; Q9967